=== PATIENT | male | born 1965 | race Caucasian/White ===

== ENCOUNTER 2017-04-11 07:58 | Outpatient (CLI) | payer OTHER | END 2017-04-11 08:13 | disposition home or self-care (01) | LOC: NUCLEAR 07:58 | DX: R07.89 Other chest pain (principal); R06.09 Other forms of dyspnea; R94.31 Abnormal electrocardiogram [ECG] [EKG] | CPT/HCPCS: 78452; 93017; A9500 ==

== ENCOUNTER 2020-02-11 06:40 | Outpatient (CLI) | payer OTHER | END 2020-02-11 06:44 | disposition home or self-care (01) | LOC: NUCLEAR 06:40 | PROVIDERS: ATTEND Internal Medicine Cardiovascular Disease | DX: I20.8 Other forms of angina pectoris (principal); I25.6 Silent myocardial ischemia | CPT/HCPCS: 78452; 93017; A9500; J0153 ==